=== PATIENT | male | born 1990 | race Two or more races ===

== ENCOUNTER 2017-05-20 18:30 | Emergency (ER) | payer MEDICAID ==
[~2017-05-20] VITALS: Ht 172.7 cm; Wt 98.9 kg
[~2017-05-20 18:30] MED LIST: DIVA500T53 PO
[2017-05-20 19:11] LABS: Basophils # (auto) 0 uL; Basophils % (auto) 0.4 % (0.0-2.0); CONDITION Y; Eosinophils # (auto) 0.1 uL; Eosinophils % (auto) 1.1 % (0.0-7.0); Hematocrit 47.5 % (41.0-53.0); Hemoglobin 16.5 g/dL (13.5-17.5); Lymphocytes # (auto) 2.3 uL; Lymphocytes % (auto) 26.6 % (10.0-50.0); Mean Corpuscular Hemoglobin 30.7 pg (28.0-32.0); Mean Corpuscular Hgb Conc. 34.8 g/dL (32.0-36.0); Mean Corpuscular Volume 88.2 fL (80.0-100.0); Mean Platelet Volume 7.5 fL (7.4-10.4); Monocytes # (auto) 0.4 uL; Monocytes % (auto) 4.3 % (0.0-12.0); Neutrophils # (auto) 5.9 uL; Neutrophils % (auto) 67.6 % (37.0-80.0); Platelet Count (auto) 280 10^3/uL (140-450); White Blood Cell 8.7 10^3/uL (4.4-10.8)
[2017-05-20 19:41] LABS: Albumin 4.2 g/dL (3.4-5.0); BUN/Creatinine Ratio 8.5; Calcium 8.8 mg/dL (8.5-10.1); Potassium 3.6 mmol/L (3.5-5.1)
[2017-05-20 19:44] LABS: Bilirubin, Total 0.8 mg/dL (0.2-1.0); Total Protein 7.9 g/dL (6.4-8.2)
[2017-05-21 03:13] LABS: Urine RBC None Seen /hpf (0 - 3)
[2017-05-21 03:43] LABS: Urine Bilirubin Negative (Negative); Urine Blood Negative /uL (Negative); Urine Color Colorless (Yellow); Urine Glucose Normal (Normal); Urine Ketone Negative (Negative); Urine Nitrite Negative (Negative); Urine Squamous Epithelial Cell FEW /hpf (<5); Urine Urobilinogen Normal (Negative)
[2017-05-21] MEDS ORDERED: ONDANSETRON HCL 4 MG/2 ML VIAL IV ONE (04:30)
[2017-05-21] MEDS ORDERED: MORPHINE SULFATE 4 MG/ML SYRG IV ONE (04:30)
[2017-05-21] MEDS ORDERED: SODIUM CHLORIDE 0.9% 1,000 ML IV ONE (04:30)
[2017-05-21] MEDS ORDERED: metroNIDAZOLE 500 MG TAB PO ONE (04:30)
[2017-05-21 05:50] VITALS: BP 132/76
== END 2017-05-21 05:53 | disposition home or self-care (01) ==
LOC: ER 18:37
DX: K52.9 Noninfective gastroenteritis and colitis, unspecified (principal); F17.210 Nicotine dependence, cigarettes, uncomplicated
CPT/HCPCS: 36415; 74176; 80053; 81001; 85025; 96361; 96374; 96375; 99285; J2270; J2405; J7030

== ENCOUNTER 2017-09-03 00:31 | Emergency (ER) | payer MEDICAID ==
[~2017-09-03] VITALS: Ht 172.7 cm; Wt 91.7 kg
[2017-09-03] MEDS ORDERED: SODIUM CHLORIDE 0.9% 1,000 ML IV ONE (02:36)
[2017-09-03] MEDS ORDERED: ONDANSETRON ODT 4 MG TAB PO ONE (02:45)
[2017-09-03] MEDS ORDERED: HYDROmorphone HCL 2 MG/ML VL IM ONE (02:45)
[2017-09-03 03:09] LABS: Urine RBC None Seen /hpf (0 - 3)
[2017-09-03] MEDS ORDERED: ONDANSETRON HCL 4 MG/2 ML VIAL ONE (03:11)
[2017-09-03] MEDS ORDERED: HYDROmorphone HCL 2 MG/ML VL IV ONE (03:15)
[2017-09-03] MEDS ORDERED: ONDANSETRON HCL 4 MG/2 ML VIAL IV ONE (03:15)
[2017-09-03 03:19] LABS: Basophils # (auto) 0.1 uL; Basophils % (auto) 0.6 % (0.0-2.0); Eosinophils # (auto) 0.1 uL; Eosinophils % (auto) 1.4 % (0.0-7.0); Hematocrit 49.7 % (41.0-53.0); Hemoglobin 17.5 g/dL (13.5-17.5); Lymphocytes % (auto) 29.7 % (10.0-50.0); Mean Corpuscular Hemoglobin 31.1 pg (28.0-32.0); Mean Corpuscular Hgb Conc. 35.2 g/dL (32.0-36.0); Mean Corpuscular Volume 88.2 fL (80.0-100.0); Mean Platelet Volume 7.6 fL (6.9-10.8); Monocytes # (auto) 0.8 uL; Monocytes % (auto) 7.8 % (0.0-12.0); Neutrophils # (auto) 6.1 uL; Neutrophils % (auto) 60.5 % (37.0-80.0); Platelet Count (auto) 259 10^3/uL (140-450); Red Cell Distribution Width 12.7 % (11.8-14.3); White Blood Cell 10.1 10^3/uL (4.4-10.8)
[2017-09-03 03:38] LABS: INR 0.97 (0.9-1.15); Partial Thromboplastin Time 24.6 sec (22.64-33.71); Prothrombin Time 10.6 sec (9.37-12.3)
[2017-09-03 03:41] LABS: Albumin 4.5 g/dL (3.4-5.0); BUN/Creatinine Ratio 9.7; Calcium 9.3 mg/dL (8.5-10.1); Potassium 3.4 mmol/L (3.5-5.1)
[2017-09-03 03:44] LABS: Bilirubin, Total 0.7 mg/dL (0.2-1.0); Total Protein 8.2 g/dL (6.4-8.2)
[2017-09-03 03:45] LABS: Urine Bilirubin Negative (Negative); Urine Blood Negative /uL (Negative); Urine Color Yellow (Yellow); Urine Glucose Normal (Normal); Urine Ketone Negative (Negative); Urine Nitrite Negative (Negative); Urine Squamous Epithelial Cell FEW /hpf (<5); Urine Urobilinogen Normal (Negative); Urine pH 6.5 (5.0-8.0)
[2017-09-03 04:22] VITALS: BP 162/99
== END 2017-09-03 04:29 | disposition home or self-care (01) ==
LOC: ER 00:31
DX: K29.70 Gastritis, unspecified, without bleeding (principal); F17.210 Nicotine dependence, cigarettes, uncomplicated; Z79.899 Other long term (current) drug therapy
CPT/HCPCS: 36415; 71010; 74176; 80053; 80307; 81001; 82962; 83690; 85025; 85610; 85730; 96361; 96374; 96375; 99285; J1170; J2405; J7030; Q0162

== ENCOUNTER 2017-11-20 13:19 | Emergency (ER) | payer MEDICAID ==
[~2017-11-20] VITALS: Ht 185.4 cm; Wt 95.3 kg
[2017-11-20 13:27] VITALS: BP 128/77
[2017-11-20] MEDS ORDERED: ACETAMINOPHEN 325 MG TAB PO ONE (13:30)
[2017-11-20] MEDS ORDERED: IBUPROFEN 800 MG TAB PO ONE (16:00)
[2017-11-20] MEDS ORDERED: cefTRIAXone SOD 1,000 MG VL IM ONE (16:00)
== END 2017-11-20 16:17 | disposition home or self-care (01) ==
LOC: EDBD 13:19 → ER 13:19
DX: J02.9 Acute pharyngitis, unspecified (principal); R51 Headache; F17.210 Nicotine dependence, cigarettes, uncomplicated
CPT/HCPCS: 96372; 99283; J0696

== ENCOUNTER 2020-05-11 17:03 | Emergency (ER) | payer MEDICAID ==
[~2020-05-11] VITALS: Ht 172.7 cm; Wt 97.1 kg
[2020-05-11 19:18] LABS: Basophils # (auto) 0 10 ^3/uL (0-0.2); Basophils % (auto) 0.4 % (0.0-2.0); Eosinophils # (auto) 0.1 10 ^3/uL (0-0.8); Eosinophils % (auto) 0.8 % (0.0-7.0); Hematocrit 44.4 % (41.0-53.0); Hemoglobin 15.2 g/dL (13.5-17.5); Lymphocytes # (auto) 1.9 10 ^3/uL (0.4-5.4); Lymphocytes % (auto) 17.8 % (10.0-50.0); Mean Corpuscular Hemoglobin 30.7 pg (28.0-32.0); Mean Corpuscular Hgb Conc. 34.3 g/dL (32.0-36.0); Mean Corpuscular Volume 89.4 fL (80.0-100.0); Monocytes # (auto) 0.7 10 ^3/uL (0-1.3); Monocytes % (auto) 6.6 % (0.0-12.0); Neutrophils # (auto) 7.9 10 ^3/uL (1.6-8.6); Neutrophils % (auto) 74.4 % (37.0-80.0); Nucleated Red Blood Cells % 0.1 %; Platelet Count (auto) 276 10^3/uL (140-450); Red Blood Cells 4.97 10^6/uL (4.5-5.90); Red Cell Distribution Width 12.6 % (11.8-14.3); White Blood Cell 10.6 10^3/uL (4.4-10.8)
[2020-05-11 19:34] LABS: Albumin 3.9 g/dL (3.4-5.0); Anion Gap 5 (5-15); Blood Urea Nitrogen 12 mg/dL (7-18); Calcium 8.7 mg/dL (8.5-10.1); Carbon Dioxide 24 mmol/L (21-32); Chloride 109 mmol/L (98-107); Glucose 131 mg/dL (74-106); Potassium 3.4 mmol/L (3.5-5.1); Sodium 138 mmol/L (136-145)
[2020-05-11 19:41] LABS: Alanine Aminotransferase 93 U/L (16-61); Alkaline Phosphatase 99 U/L (45-117); Aspartate Aminotransferase 40 U/L (15-37); BUN/Creatinine Ratio 11.9; Bilirubin, Total 0.5 mg/dL (0.2-1.0); GFR African American 112 mL/min; GFR Non-African American 92 mL/min; Total Protein 7.3 g/dL (6.4-8.2)
[2020-05-11 20:43] LABS: Alcohol, Urine < 3.0 mg/dL (0-10); Amphetamine Screen, Urine NEGATIVE (NEGATIVE); Barbiturate Scree,Urine NEGATIVE (NEGATIVE); Benzodiazephine Screen, Urine NEGATIVE (NEGATIVE); Cannabinoid Screen, Urine POSITIVE (NEGATIVE); Cocaine Screen, Urine NEGATIVE (NEGATIVE)
[2020-05-11 20:50] LABS: Opiate Scree,Urine NEGATIVE (NEGATIVE); Phencyclidine Screen, Urine NEGATIVE (NEGATIVE)
[2020-05-11 21:04] LABS: Urine Bacteria NONE SEEN /hpf (None Seen); Urine Blood Negative /uL (Negative); Urine Mucus FEW (None Seen); Urine Specific Gravity 1.011 (1.001-1.035); Urine WBC <1 /hpf (0 - 3)
[2020-05-11] MEDS ORDERED: POTASSIUM CHL 20 Meq TABLET PO ONE (21:30)
[2020-05-12 01:14] VITALS: BP 154/104
== END 2020-05-12 01:42 | disposition home or self-care (01) ==
LOC: ER 17:03
DX: R03.0 Elevated blood-pressure reading, without diagnosis of hypertension (principal); R51 Headache; F12.10 Cannabis abuse, uncomplicated; R79.89 Other specified abnormal findings of blood chemistry; F17.210 Nicotine dependence, cigarettes, uncomplicated
CPT/HCPCS: 36415; 70450; 80053; 80307; 81001; 84484; 85025

== ENCOUNTER 2021-05-19 21:56 | Emergency (ER) | payer MEDICAID ==
[~2021-05-19] VITALS: Ht 172.7 cm; Wt 99.8 kg
[~2021-05-19 21:56] MED LIST changes: +DIVA500T2 PO; -DIVA500T53 PO
[2021-05-20 01:30] VITALS: BP 124/88
== END 2021-05-20 02:20 | disposition home or self-care (01) ==
LOC: ER 21:58
DX: S80.812A Abrasion, left lower leg, initial encounter (principal); R51.9 Headache, unspecified; R10.84 Generalized abdominal pain; F41.9 Anxiety disorder, unspecified; F32.9 Major depressive disorder, single episode, unspecified; F20.9 Schizophrenia, unspecified; F17.210 Nicotine dependence, cigarettes, uncomplicated; V49.59XA Passenger injured in collision with other motor vehicles in traffic accident, initial encounter; Y93.89 Activity, other specified; Y92.488 Other paved roadways as the place of occurrence of the external cause; Y99.8 Other external cause status
CPT/HCPCS: 70450; 71250; 74176

== ENCOUNTER 2021-11-20 13:30 | Emergency (ER) | payer MEDICAID ==
[~2021-11-20] VITALS: Ht 172.7 cm; Wt 102.1 kg
[2021-11-20 14:00] VITALS: BP 149/98
[2021-11-20] MEDS ORDERED: HYDR50CA PO (14:05)
[2021-11-20] MEDS ORDERED: IBUP800T27 PO (14:09)
== END 2021-11-20 14:18 | disposition home or self-care (01) ==
LOC: ER 13:30
DX: G44.209 Tension-type headache, unspecified, not intractable (principal); F17.210 Nicotine dependence, cigarettes, uncomplicated
CPT/HCPCS: 70450; 82962

== ENCOUNTER 2023-12-03 12:06 | Inpatient (IN) | payer MEDICAID ==
[~2023-12-03] VITALS: Ht 172.7 cm; Wt 91.0 kg
[~2023-12-03 12:06] MED LIST changes: -DIVA500T2 PO; +DIVA500T3 PO; +HYDR50CA PO; +IBUP-1456 PO
[2023-12-03 12:37] VITALS: PULSE 103
[2023-12-03 12:55] LABS: Basophils # (auto) 0 10 ^3/uL (0-0.2); Basophils % (auto) 0.3 % (0.0-2.0); Eosinophils # (auto) 0 10 ^3/uL (0-0.8); Eosinophils % (auto) 0.2 % (0.0-7.0); Hematocrit 45.9 % (41.0-53.0); Hemoglobin 16.2 g/dL (13.5-17.5); Lymphocytes # (auto) 1.8 10 ^3/uL (0.4-5.4); Lymphocytes % (auto) 16.6 % (10.0-50.0); Mean Corpuscular Hemoglobin 29.3 pg (28.0-32.0); Mean Corpuscular Hgb Conc. 35.2 g/dL (32.0-36.0); Mean Corpuscular Volume 83.3 fL (80.0-100.0); Monocytes # (auto) 0.6 10 ^3/uL (0-1.3); Monocytes % (auto) 5.6 % (0.0-12.0); Neutrophils # (auto) 8.5 10 ^3/uL (1.6-8.6); Neutrophils % (auto) 77.3 % (37.0-80.0); Nucleated Red Blood Cells % 0.2 %; Red Blood Cells 5.51 10^6/uL (4.5-5.90); Red Cell Distribution Width 12.7 % (11.8-14.3)
[2023-12-03 13:09] LABS: Acetaminophen < 2.0 UG/ML (10.0-20.0); Alanine Aminotransferase 43 U/L (7-40); Albumin 5.2 g/dL (3.2-4.8); Alkaline Phosphatase 96 U/L (46-116); Anion Gap 7 (5-15); Aspartate Aminotransferase 25 U/L (13-40); BUN/Creatinine Ratio 17.7 (10.0-20.0); Bilirubin, Total 1.4 mg/dL (0.2-1.0); Blood Alcohol < 3.0 mg/dL (<10); Blood Urea Nitrogen 14 mg/dL (9-23); Carbon Dioxide 26 mmol/L (20-30); Chloride 106 mmol/L (98-107); Glucose 109 mg/dL (74-106); Sodium 139 mmol/L (136-145); Total Protein 7.2 g/dL (5.7-8.2)
[2023-12-03 13:13] LABS: Salicylate < 3.0 mg/dL (2.8-20.0)
[2023-12-03 14:27] LABS: Amphetamine Screen, Urine Neg (NEGATIVE); Barbiturate Scree,Urine Neg (NEGATIVE)
[2023-12-03 14:28] LABS: Benzodiazephine Screen, Urine Neg (NEGATIVE); Cannabinoid Screen, Urine Pos (NEGATIVE); Cocaine Screen, Urine Neg (NEGATIVE); Opiate Scree,Urine Neg (NEGATIVE); Phencyclidine Screen, Urine Neg (NEGATIVE)
[2023-12-03] MEDS: cloNIDine HCL 0.1 MG TAB PO ONE (14:55)
[2023-12-03 15:44] LABS: Urine Bacteria NONE SEEN /hpf (None Seen); Urine Blood Negative /uL (Negative); Urine Clarity Clear (Clear); Urine Color Colorless (Yellow); Urine Mucus FEW (None Seen); Urine Protein, UAD Negative (Negative); Urine Specific Gravity 1.017 (1.001-1.035); Urine Urobilinogen Normal (Negative); Urine WBC <1 /hpf (0 - 3)
[2023-12-03 16:11] LABS: Magnesium 2.2 mg/dL (1.6-2.6)
[2023-12-03 16:13] LABS: Phosphorus 2.9 mg/dL (2.4-5.1)
[2023-12-03 16:48] LABS: Erythrocyte Sedimentation Rate 2 mm/hr (0-20)
[2023-12-03] MEDS: METOPROLOL TARTRATE 25 MG TAB PO ONE (18:15)
[2023-12-03] MEDS: LOSARTAN POTASSIUM 25 MG TAB PO ONE (18:16)
[2023-12-03 19:30] VITALS: PULSE 96; RESP 14; O2SAT 98
[2023-12-03] MEDS: ATORVASTATIN 20 MG TAB PO SCH (22:23)
[2023-12-03] MEDS: METOPROLOL TARTRATE 50 MG TAB PO SCH (22:23)
[2023-12-04 07:06] LABS: RPR Non Reactive (Non Reactive)
[2023-12-04 07:32] LABS: Triglycerides 148 mg/dL (< 150)
[2023-12-04 07:33] LABS: LDL Cholesterol 127 mg/dL (< 100)
[2023-12-04 07:34] LABS: Cholesterol 179 mg/dL (< 200); HDL Cholesterol 37 mg/dL (40-59)
[2023-12-04 08:00] VITALS: PULSE 89; RESP 16; O2SAT 98
[2023-12-04] MEDS: hydrALAZINE HCL 20 MG/ML VL IV PRN (08:12)
[2023-12-04] MEDS: ASPirin 81 mg TAB PO SCH (10:10)
[2023-12-04] MEDS: LOSARTAN POTASSIUM 50 MG TAB PO SCH (10:11)
[2023-12-04] MEDS: LORazepam 2MG/ML-1ML VIAL IV PRN (16:17)
[2023-12-05] MEDS: MELATONIN 5 MG TAB PO SCH (01:33)
[2023-12-05] MEDS: LORazepam 0.5 MG TAB PO PRN (16:35)
[2023-12-05 20:06] VITALS: PULSE 92; RESP 16; O2SAT 96
[2023-12-06] VITALS (9 sets, daily range): BP systolic 98–137; BP diastolic 51–84; PULSE 74–86; RESP 18–20; TEMP 97.7–98.9; O2SAT 0–98
[2023-12-07] VITALS (7 sets, daily range): BP systolic 121–134; BP diastolic 78–86; PULSE 76–102; RESP 17–20; TEMP 97.9–98.9; O2SAT 95–98
[2023-12-08 01:00] VITALS: BP 116/66; PULSE 80; RESP 18; TEMP 98.7; O2SAT 95
[2023-12-08 05:00] VITALS: BP 129/78; PULSE 76; RESP 18; TEMP 98.5; O2SAT 97
[2023-12-08 07:30] VITALS: O2SAT 95
[2023-12-08 08:30] VITALS: BP 124/79; PULSE 80; RESP 18; TEMP 99; O2SAT 96
[2023-12-08] MEDS ORDERED: LOSA25TA5 PO (10:37)
[2023-12-08] MEDS ORDERED: ASPI-628 PO (10:37)
[2023-12-08] MEDS ORDERED: ATOR20TA PO (10:37)
[2023-12-08] MEDS ORDERED: METO25TA5 PO (10:37)
[2023-12-08 12:55] VITALS: BP 124/79; PULSE 80; TEMP 37.2
[2023-12-08 13:00] VITALS: BP 110/61; PULSE 70; RESP 19; TEMP 99.5; O2SAT 99
== END 2023-12-08 13:34 | disposition home or self-care (01) | DRG 199 ==
LOC: ER 12:06 → TELE 15:56 → TELE-WESTW 12-05 23:53
PROVIDERS: ADMIT Nurse Practitioner Family; ATTEND Family Medicine
DX: I16.1 Hypertensive emergency (principal); G93.41 Metabolic encephalopathy; I67.4 Hypertensive encephalopathy; D72.829 Elevated white blood cell count, unspecified; G89.29 Other chronic pain; F41.9 Anxiety disorder, unspecified; F20.9 Schizophrenia, unspecified; F31.9 Bipolar disorder, unspecified; R73.03 Prediabetes; M54.12 Radiculopathy, cervical region; E66.9 Obesity, unspecified; Z82.49 Family history of ischemic heart disease and other diseases of the circulatory system; Z87.891 Personal history of nicotine dependence; Z68.30 Body mass index [BMI] 30.0-30.9, adult; Z56.0 Unemployment, unspecified; Z79.899 Other long term (current) drug therapy; Z91.148 Patient's other noncompliance with medication regimen for other reason
CPT/HCPCS: 36415; 70450; 70551; 71045; 72141; 80053; 80061; 80307; 80320; 80329; 81001; 82140; 82607; 82962; 83036; 83735; 83880; 84100; 84443; 84484; 85025; 85652; 86592; 93005; 93306; 93886; 95819; 97110; 97116; 97163; 99291; G0378

== ENCOUNTER 2024-07-28 06:01 | Emergency (ER) | payer MEDICAID ==
[~2024-07-28] VITALS: Ht 172.7 cm; Wt 88.7 kg
[~2024-07-28 06:01] MED LIST changes: +ASPI-628 PO; +ATOR20TA PO; -DIVA500T3 PO; -HYDR50CA PO; -IBUP-1456 PO; +LOSA25TA5 PO; +METO25TA5 PO
--- NOTE | 2024-07-28 06:58 | ED.PDOC ---
Nicole. trauma (HPI) HPI Comments A 34 YEAR OLD MALE PRESENTS TO THE ED WITH COMPLAINT OF LEFT FACIAL PAIN. PATIENT STATES A HEAVY BOX ACCIDENTALLY FELL AND HIT THE LEFT SIDE OF HIS FACE 1 WEEK AGO. PATIENT REPORTS HE IS STILL EXPERIENCING LEFT-SIDED FACIAL PAIN AND WOULD LIKE TO BE EVALUATED. PATIENT DENIES HEAD INJURY, NECK INJURY, LOC, FEVER, CHILLS, SHORTNESS OF BREATH, CHEST PAIN, ABDOMINAL PAIN, NAUSEA, VOMITING, HEADACHE, OR OTHER COMPLAINTS. NO OTHER SYMPTOMS OR MODIFYING FACTORS AT THIS TIME. PATIENT IS ALERT, ORIENTED X 4, AND HAS STEADY GAIT. Chief Complaint: Face pain Time Seen by MD: 06:20 Primary Care Provider: Who Reviewed notes: Nurses Notes, Medications, Allergies Allergies: Coded Allergies: NO KNOWN ALLERGIES (Unverified , 09/03/17) Home Meds Active Scripts Aspirin (Aspirin Adult Low Dose) 81 Mg Tab, 81 MG PO DAILY, #90 TAB Prov:MESHA VILLAGRAN MD 12/08/23 Atorvastatin Calcium (Lipitor) 20 Mg Tab, 1 TAB PO DAILY, #90 TAB 1 Refill Prov:MESHA VILLAGRAN MD 12/08/23 Metoprolol Tartrate (Metoprolol Tartrate) 25 Mg Tab, 1 TAB PO BID, #180 TAB 1 Refill Prov:MESHA VILLAGRAN MD 12/08/23 Losartan Potassium (Cozaar) 25 Mg Tab, 25 MG PO DAILY, #90 TAB Prov:MESHA VILLAGRAN MD 12/08/23 Information Source: Patient Mode of Arrival: Ambulatory Severity: Moderate Timing: Days Duration: Since onset, Days Prehospital treatment: None Location: Face Location of laceration: None Mechanism: Blunt trauma Associated signs and symtoms: None Past Medical History PAST MEDICAL HISTORY: Anxiety, Depression, Schizophrenia Surgical History: Denies all surgeries Family History Family History: Reviewed,noncontributory to illness, No family hx of Cancer, No family hx of DM, No family hx of Heart [place], No family hx of HTN, No family hx ofKidney [place], No family hx of Liver [place], No family hx of Lung [place], No family hx of Stroke Social History Smoker: Cigarettes, Greater Than 1 Pack/Day Alcohol: Denies ETOH Use Drugs: Denies Drug Use Lives In: Home Constitutional: denies: chills, diaphoresis, fatigue, fever, malaise, sweats, weakness, others EENTM: reports: others (CONTUSION ON LEFT CHEEK. ); denies: blurred vision, double vision, ear bleeding, ear discharge, ear drainage, ear pain, ear ringing, eye pain, eye redness, hearing loss, mouth pain, mouth swelling, nasal discharge, nose bleeding, nose congestion, nose pain, photophobia, tearing, throat pain, throat swelling, voice changes Respiratory: denies: cough, hemoptysis, orthopnea, SOB at rest, shortness of breath, SOB with excertion, stridor, wheezing, others Cardiovascular: denies: chest pain, dizzy spells, diaphoresis, Dyspnea on exertion, edema, irregular heart beat, left arm pain, lightheadedness, palpitations, PND, syncope, others Gastrointestinal: denies: abdomen distended, abdominal pain, blood streaked bowels, constipated, diarrhea, dysphagia, difficulty swallowing, hematemesis, melena, nausea, poor appetite, poor fluid intake, rectal bleeding, rectal pain, vomiting, others Genitourinary: denies: burning, dysuria, flank pain, frequency, hematuria, incontinence, penile discharge, penile sore, pain, testicle pain, testicle swelling, urgency, others Neurological: denies: dizziness, fainting, headache, left sided numbness, left sided weakness, numbness, paresthesia, pre-existing deficit, right sided numbness, right sided weakness, seizure, speech problems, tingling, tremors, weakness, others Musculoskeletal: denies: back pain, gout, joint pain, joint swelling, muscle pain, muscle stiffness, neck pain, others Integumetry: reports: bruises (ON LEFT CHEEK. ), others (LEFT-SIDED FACIAL PAIN); denies: change in color, change in hair/nails, dryness, laceration, lesions, lumps, rash, wounds Allergic/Immunocompromised: denies: Difficulty Healing, Frequent Infections, Hives, Itching, others Hematologic/Lymphatic: denies: anemia, blood clots, easy bleeding, easy bruising, swollen glands, others Endocrine: denies: excessive hunger, excessive sweating, excessive thirst, excessive urination, flushing, intolerance to cold, intolerance to heat, unexplained weight gain, unexplained weight loss, others Psychiatric: denies: anxiety, bipolar disorder, depression, hopeless, panic disorder, schizophrenia, sleepless, suicidal, others All Other Systems: Reviewed and Negative Physical Exam General Appearance: No Apparent Distress, Normal HEENT: Normal ENT Inspection, PERRL/EOMI, Pharynx Normal, TMs Normal, Other (TENDERNESS AND CONTUSION ON LEFT CHEEK, NO BONY TENDERNESS, SWELLING AND DEFORMITY. ) Neck: Full Range of Motion, Non-Tender, Normal, Normal Inspection Respiratory: Chest Non-Tender, Lungs Clear, No Accessory Muscle Use, No Respiratory Distress, Normal Breath Sounds Cardiovascular: No Edema, No JVD, No Murmur, No Gallop, Normal Peripheral Pulses, Regular Rate/Rhythm Breast Exam: Deferred Gastrointestinal: No Organomegaly, Non Tender, No Pulsatile Mass, Normal Bowel Sounds, Soft Genitalia: Deferred Pelvic: Deferred Rectal: Deferred Extremities: No calf tenderness, Normal capillary refill, Normal inspection, Normal range of motion, Non-tender, No pedal edema Musculoskeletal : Apperance: Normal Neurologic: Alert, raw products director II-XII nml as Tested, No Motor Deficits, Normal Affect, Normal Mood, No Sensory Deficits Cerebellar Function: Normal Reflexes: Normal Skin: Bruises (ON LEFT CHEEK, NO BONY TENDERNESS, SWELLING AND DEFORMITY. ), Dry, Normal Color, Warm Peripheral Pulses: 2+ carotid (R), 2+ carotid (L) Lymphatic: No Adenopathy Was a procedure done? Was a procedure done?: No Differential Diagnosis Multiple Trauma: Fractures, Abrasions, Contusion Neck Injury: N/A X-Ray, Labs, Meds, VS Vital Signs Date Time Temp Pulse Resp B/P (MAP) Pulse Ox O2 Delivery O2 Flow Rate FiO2 07/28/24 07:36 86 18 96 Room Air 07/28/24 07:36 98.4 86 18 151/97 (115) 96 98.4 07/28/24 06:05 98.4 86 18 151/97 (115) 96 PATIENT: MENA REDMONDACCT: [id number]: [id number] : 1990 LOC: ER ROOM / BED: / AGE / SEX: 34 / M ADM STATUS: [facility] ER SERVICE [id number] ORDERING PHYSICIAN: DESMOND KINNEY PROCEDURE(s): FACE2 - FACIAL BONES LIMITED REASON: LEFT CHEEK PAIN POST BOX HIT LEFT FACE ONE WEEK AGO ORDER NUMBER(s): [id number], ACCESSION NUMBER(s): [id number] CLINICAL INFORMATION: 34 years old, Male; left cheek pain status post injury to left side of face. TECHNIQUE: 3 views of the facial bones were obtained. COMPARISON: None FINDINGS: No acute facial bone fracture visualized. IMPRESSION: No acute facial bone fracture visualized. Correlate with clinical findings. If there remains clinical concern for facial bone fracture, CT could be obtained. ATED BY: MEHDI FITZPATRICK DO DICTATED DATE/TIME: 07/28/24755 SIGNED BY: MEHDI FITZPATRICK DO SIGNED DATE/TIME: 07/28/24755 CC: X-Ray, Labs, Meds, VS Comment XR FACIAL BONES: [INTERPRETED BY ME. NO ACUTE FINDINGS. NO FRACTURES OR DISLOCATION. PENDING RADIOLOGIST REPORT.] Images Reviewed?: Images reviewed and evaluated by me Time of 1ST Reevaluation: 08:04 Reevaluation 1ST: Improved Patient Education/Counseling: Diagnosis, Treatment, Need For Follow Up Family Education/Counseling: Diagnosis, Treatment, Need For Follow Up Medical Screening: No EMC Exist At This Time Departure 1 Departure Time of Disposition: 08:04 Impression: Primary Impression: Contusion of left cheek Disposition: 01 HOME / SELF CARE / HOMELESS Condition: Stable Additional Instructions: FOLLOW-UP WITH PCP IN 1 TO 2 DAYS. TAKE MEDICATIONS PRESCRIBED. RETURN TO ED FOR ANY NEW OR WORSENING SYMPTOMS. Discharged With: Self Critical Care Note Critical Care Time?: No Stability Stability form required: No I personally scribed for DESMOND KINNEY ([email or web address]) on 07/28/24 at 06:58. Electronically submitted by Sang Kaminski ([email or web address]). I personally scribed for DESMOND KINNEY ([email or web address]) on 07/28/24 at 07:40. Electronically submitted by Sang Kaminski ([email or web address]). DESMOND KINNEY Jul 28, 2024 06:58
[2024-07-28 07:36] VITALS: BP 151/97; PULSE 86; RESP 18; TEMP 98.4; O2SAT 96
--- NOTE | 2024-07-28 07:59 | DVH ---
CLINICAL INFORMATION: 34 years old, Male; left cheek pain status post injury to left side of face. TECHNIQUE: 3 views of the facial bones were obtained. COMPARISON: None FINDINGS: No acute facial bone fracture visualized. IMPRESSION: No acute facial bone fracture visualized. Correlate with clinical findings. If there remains clinical concern for facial bone fracture, CT could be obtained.
== END 2024-07-28 07:45 | disposition home or self-care (01) ==
LOC: ER 06:01
DX: S00.83XA Contusion of other part of head, initial encounter (principal); F20.9 Schizophrenia, unspecified; F17.210 Nicotine dependence, cigarettes, uncomplicated; Z79.82 Long term (current) use of aspirin; Z79.899 Other long term (current) drug therapy; W18.09XA Striking against other object with subsequent fall, initial encounter; Y93.89 Activity, other specified; Y92.89 Other specified places as the place of occurrence of the external cause; Y99.8 Other external cause status
CPT/HCPCS: 70140